=== PATIENT | female | born 1945 ===

== ENCOUNTER 2017-07-02 11:17 | Emergency (ER) | payer OTHER, MEDICAID ==
[2017-07-02 11:22] VITALS: TEMP 98.8; O2SAT 98
--- NOTE | 2017-07-02 11:54 | C.PDOC ---
History Of Present Illness 71 year old female presents to the ED with complaints of itchiness and redness to bilateral eyes beginning last night. Patient notes clear discharge from bilateral eyes and also has runny nose. She denies cough, rashes, fever, visual changes, headache, trauma/injuries. Time Seen by Provider: 07/02/17 11:38 Chief Complaint (Nursing): Eye Problem History Per: Patient History/Exam Limitations: no limitations Onset/Duration Of Symptoms: Hrs (began last night ) Current Symptoms Are (Timing): Still Present Injury To Eye?: No Severity: Mild Wears Contact Lens?: No Associated Symptoms: Itching, Other (redness). denies: Pain, Decreased Vision, Swelling Past Medical History Reviewed: Historical Data, Nursing Documentation, Vital Signs Vital Signs: Last Vital Signs Temp 98.8 F 07/02/17 11:20 Pulse 68 07/02/17 12:10 Resp 16 07/02/17 12:10 BP 128/78 07/02/17 12:10 Pulse Ox 98 07/03/17 07:34 - Medical History PMH: Depression, HTN Family History: States: No Known Family Hx - Social History Hx Alcohol Use: No Hx Substance Use: No - Immunization History Hx Tetanus Toxoid Vaccination: No Hx Influenza Vaccination: No Hx Pneumococcal Vaccination: No Review Of Systems Except As Marked, All Systems Reviewed And Found Negative. Constitutional: Negative for: Fever, Chills Eyes: Positive for: Redness, Other (itching) Respiratory: Negative for: Cough Gastrointestinal: Negative for: Nausea, Vomiting Skin: Negative for: Rash Neurological: Negative for: Headache, Dizziness Physical Exam - Physical Exam Appears: Well, Non-toxic, No Acute Distress Skin: Normal Color, Warm, Dry, No Rash (no facial rash ) Head: Normacephalic Eye(s): bilateral: PERRL, EOMI (no pain with movement), Other (mild scleral injection and mild clear discharge. No periorbital erythema or swelling to eye lids. ) Ear(s): Bilateral: Normal Nose: Normal, No Discharge Oral Mucosa: Moist Throat: Normal, No Erythema, No Exudate Cardiovascular: Rhythm Regular Respiratory: Normal Breath Sounds, No Rales, No Rhonchi, No Wheezing Neurological/Psych: Oriented x3 ED Course And Treatment O2 Sat by Pulse Oximetry: 98 (room air ) Pulse Ox Interpretation: Normal Progress Note: Patient given Rx for antibiotic eye drops, and instructed to follow up with ophtho in 1-2 days. She understands she should return to ED if symptoms worsen. Disposition Counseled Patient/Family Regarding: Diagnosis, Need For Followup, Rx Given - Disposition Referrals: Giuliano Nixon MD [Staff Provider] - Nina Beck MD [Staff Provider] - Disposition: HOME/ ROUTINE Disposition Time: 11:55 Condition: STABLE Additional Instructions: SEGUIMIENTO CON EL MDICO OCULAR EN 1-2 KENNEDY USE LAS GOTAS DEL ADRYL SEGN LO DIRIGIDO DEVUELVA A LA ANIBAL DE EMERGENCIA SI LOS SNTOMAS EMPEORARAN Prescriptions: Polymyxin B Sulf/Trimethoprim [Polymyxin B-Tmp Eye Drops] 2 drop OP Q6 #1 bottle Instructions: Conjunctivitis (ED) Forms: [employer] [facility] (Sinhala) Print Language: [place] - POA Present On Arrival: None - Clinical Impression Clinical Impression: Conjunctivitis - Scribe Statement The provider has reviewed the documentation as recorded by the Scribe Julia Lubin All medical record entries made by the Scribe were at my direction and personally dictated by me. I have reviewed the chart and agree that the record accurately reflects my personal performance of the history, physical exam, medical decision making, and the department course for this patient. I have also personally directed, reviewed, and agree with the discharge instructions and disposition.
[2017-07-02 12:11] VITALS: BP 128/78; PULSE 68; RESP 16
== END 2017-07-02 12:10 | disposition home or self-care (01) ==
LOC: C.ER 11:17
DX: H10.9 Unspecified conjunctivitis (principal)

== ENCOUNTER 2019-01-13 16:06 | Emergency (ER) | payer OTHER, MEDICAID ==
[2019-01-13 16:38] VITALS: BP 163/78; PULSE 105; TEMP 98.7; O2SAT 97
--- NOTE | 2019-01-13 17:15 | RAD ---
Date of service: 01/13/2019 HISTORY: COUGH COMPARISON: Chest and bilateral ribs radiographs 03/27/2016. TECHNIQUE: Chest PA and lateral views FINDINGS: LUNGS: No active pulmonary disease. PLEURA: No significant pleural effusion identified. No pneumothorax apparent. CARDIOVASCULAR: No aortic atherosclerotic calcification present. Mild cardiomegaly noted once again. No pulmonary vascular congestion. OSSEOUS STRUCTURES: No significant abnormalities. VISUALIZED UPPER ABDOMEN: Normal. OTHER FINDINGS: None. IMPRESSION: No interval acute cardiopulmonary disease appreciated. Mild cardiomegaly appears stable without pulmonary vascular congestion.
--- NOTE | 2019-01-13 17:25 | C.PDOC ---
History Of Present Illness 73 y/o female presents to the ED complaining of cough and chest congestion for 6 days. Denies associated fever, chest pain, NARVAEZ, SOB, nausea, vomiting, or abdominal pain. Patient has no hx of asthma. Time Seen by Provider: 01/13/19 16:35 Chief Complaint (Nursing): Cough, Cold, Congestion History Per: Patient History/Exam Limitations: no limitations Onset/Duration Of Symptoms: Days (x 6) Current Symptoms Are (Timing): Still Present Associated Symptoms: Cough, Nasal Congestion Past Medical History Reviewed: Historical Data, Nursing Documentation, Vital Signs Vital Signs: Last Vital Signs Temp 98.7 F 01/13/19 16:23 Pulse 105 H 01/13/19 16:23 Resp 18 01/13/19 16:23 BP 163/78 H 01/13/19 16:23 Pulse Ox 97 01/13/19 16:23 - Medical History PMH: Depression, HTN Family History: States: Unknown Family Hx - Social History Hx Alcohol Use: No Hx Substance Use: No - Immunization History Hx Tetanus Toxoid Vaccination: No Hx Influenza Vaccination: No Hx Pneumococcal Vaccination: No Review Of Systems Except As Marked, All Systems Reviewed And Found Negative. Constitutional: Negative for: Fever, Chills ENT: Positive for: Other (Chest congestion) Cardiovascular: Negative for: Chest Pain Respiratory: Positive for: Cough. Negative for: Shortness of Breath Gastrointestinal: Negative for: Nausea, Vomiting, Abdominal Pain, Diarrhea Skin: Negative for: Rash Neurological: Negative for: Weakness, Headache Physical Exam - Physical Exam Appears: Non-toxic, No Acute Distress Skin: Warm, Dry, No Rash Head: Atraumatic, Normacephalic Eye(s): bilateral: Normal Inspection, PERRL, EOMI Oral Mucosa: Moist Neck: Normal ROM Chest: Symmetrical Cardiovascular: Rhythm Regular, No Murmur Respiratory: No Accessory Muscle Use, Other (Dry cough noted, +Bronchial conge stion, No retractions) Gastrointestinal/Abdominal: Soft, No Tenderness, No Distention Extremity: Bilateral: Atraumatic, Normal Color And Temperature Neurological/Psych: Oriented x3 ED Course And Treatment O2 Sat by Pulse Oximetry: 97 Pulse Ox Interpretation: Normal - Radiology CXR: Interpreted by Me CXR Interpretation: Yes: No Acute Disease Medical Decision Making Medical Decision Making: Plan: * 200 mg Tessalon Perles * Chest x-ray Disposition Counseled Patient/Family Regarding: Diagnosis, Need For Followup, Rx Given - Disposition Referrals: YOUR,PMD [Other] Disposition: HOME/ ROUTINE Disposition Time: 17:23 Condition: GOOD Prescriptions: Azithromycin 250 mg PO DAILY #6 tab Benzonatate [Tessalon Perles] 200 mg PO TID PRN #15 sgl PRN Reason: Cough Instructions: Acute Bronchitis, Adult (DC) Forms: [employer] (Khmer) - Clinical Impression Clinical Impression: Bronchitis - Scribe Statement The provider has reviewed the documentation as recorded by the Michoacano Castillo Provider Attestation: All medical record entries made by the [place] were at my direction and personally dictated by me. I have reviewed the chart and agree that the record accurately reflects my personal performance of the history, physical exam, medical decision making, and the department course for this patient. I have also personally directed, reviewed, and agree with the discharge instructions and disposition.
[2019-01-13 17:47] VITALS: RESP 20
== END 2019-01-13 17:46 | disposition home or self-care (01) ==
LOC: C.ER 16:06
DX: J40 Bronchitis, not specified as acute or chronic (principal); I10 Essential (primary) hypertension; F32.9 Major depressive disorder, single episode, unspecified